=== PATIENT | male | born 1975 | race Caucasian/White ===

== ENCOUNTER 2020-03-02 18:20 | Emergency (ER) | payer BC ==
--- NOTE | 2020-03-02 20:07 | EDM.PDOC ---
ED HPI GENERAL MEDICAL PROBLEM - General Chief Complaint: Genitourinary Problem Stated Complaint: BLOOD IN URINE Time Seen by Provider: 03/02/20 19:45 Source of Information: Reports: Patient History Limitations: Reports: No Limitations - History of Present Illness INITIAL COMMENTS - FREE TEXT/NARRATIVE: The patient presents with dysuria. This started last night. He said he felt the urge to have a BM and had a few. Then this morning he had pain with urination and hematuria is evening. He has never had this before. His is sexually active with his only. He has no discharge. He said he may have had some lower abdominal discomfort a few days ago. He has no fever, chills, cough, congestion, runny nose, chest pain or shortness of breath. Onset: Gradual Duration: Day(s): Quality: Reports: Burning Severity: Moderate Improves with: Reports: None Worsens with: Reports: None Associated Symptoms: Denies: Chest Pain, Cough, Fever/Chills, Headaches, Nausea/Vomiting, Shortness of Breath - Related Data Allergies Allergy/AdvReac Type Severity Reaction Status Date / Time Penicillins Allergy Rash Verified 03/02/20 18:39 pollen extracts Allergy Other Verified 03/02/20 18:39 Home Meds: Home Meds Acetaminophen [Tylenol Arthritis] 2 tab PO DAILY 03/02/20 [History] Aspirin 81 mg PO DAILY 03/02/20 [History] Fexofenadine HCl [Kyara Allergy] 60 mg PO DAILY 03/02/20 [History] Valsartan/Hydrochlorothiazide [Valsartan-Hctz 160-12.5 mg Tab] 1 tab PO DAILY 03/02/20 [History] cephALEXin [Keflex] 500 mg PO BID #10 cap 03/02/20 [Rx] ED ROS GENERAL - Review of Systems Review Of Systems: See Below Constitutional: Reports: No Symptoms HEENT: Reports: No Symptoms Respiratory: Reports: No Symptoms Cardiovascular: Reports: No Symptoms Endocrine: Reports: No Symptoms, Polyuria : Reports: Dysuria, Hematuria Musculoskeletal: Reports: No Symptoms Skin: Reports: No Symptoms ED EXAM, GI/ABD - Physical Exam Exam: See Below Exam Limited By: No Limitations General Appearance: Alert, No Apparent Distress Ears: Normal External Exam Nose: Normal Inspection Head: Atraumatic, Normocephalic Neck: Normal Inspection Respiratory/Chest: No Respiratory Distress, Lungs Clear, Normal Breath Sounds Cardiovascular: Regular Rate, Rhythm, No Edema, No Murmur GI/Abdominal Exam: Soft, Non-Tender, No Organomegaly, No Mass Back Exam: Normal Inspection Extremities: Normal Inspection Course - Vital Signs Last Recorded V/S: Last Vital Signs Temp 99.4 F 03/02/20 18:34 Pulse 86 03/02/20 18:34 Resp 16 03/02/20 18:34 BP 147/95 H 03/02/20 18:34 Pulse Ox 98 03/02/20 18:34 - Orders/Labs/Meds Orders: Active Orders 24 hr Category Date Time Status CULTURE URINE [RM] Stat Lab 03/02/20 19:39 Received Labs: Laboratory Tests 03/02/20 Range/Units 19:39 Urine Color Light yellow (Yellow) Urine Appearance Turbid H (Clear) Urine pH 7.0 (5.0-8.0) Ur Specific [place] 1.020 (1.005-1.030) Urine Protein 2+ H (Negative) Urine Glucose (UA) Negative (Negative) Urine Ketones Negative (Negative) Urine Occult Blood 3+ H (Negative) Urine Nitrite Negative (Negative) Urine Bilirubin Negative (Negative) Urine Urobilinogen 1.0 (0.2-1.0) Ur Leukocyte Esterase 2+ H (Negative) Urine RBC 50-75 H (0-5) /hpf Urine WBC 50-75 H (0-5) /hpf Ur Epithelial Cells Not seen (0-5) /hpf Urine Bacteria Rare (FEW) /hpf Urine Mucus Not seen (FEW) /hpf - Re-Assessments/Exams Free Text/Narrative Re-Assessment/Exam: 03/02/20 20:04 His UA shows a UTI. I will get him on keflex. Departure - Departure Time of Disposition: 20:05 Disposition: Home, Self-Care 01 Condition: Good Clinical Impression: UTI, Urinary tract infectious disease - Discharge Information *PRESCRIPTION DRUG MONITORING PROGRAM REVIEWED*: Not Applicable *COPY OF PRESCRIPTION DRUG MONITORING REPORT IN PATIENT YANNICK: Not Applicable Prescriptions: cephALEXin [Keflex] 500 mg PO BID #10 cap Referrals: Abhay Youssef MD [Primary Care Provider] - Additional Instructions: Take the keflex 2 times per day for 5 days. Drink plenty of fluids. Take motrin or tylenol for pain. Please return if you are worse. Sepsis Event Note (ED) - Evaluation Sepsis Screening Result: No Definite Risk - Focused Exam Vital Signs: Vital Signs Temp Pulse Resp BP Pulse Ox 03/02/20 18:34 99.4 F 86 16 147/95 H 98 - My Orders Last 24 Hours: My Active Orders 03/02/20 19:39 CULTURE URINE [RM] Stat - Assessment/Plan Last 24 Hours: My Active Orders 03/02/20 19:39 CULTURE URINE [RM] Stat
== END 2020-03-02 20:23 | disposition home or self-care (01) ==
LOC: JD.ED 18:20
DX: N39.0 Urinary tract infection, site not specified (principal); Z88.0 Allergy status to penicillin; Z91.048 Other nonmedicinal substance allergy status; Z79.82 Long term (current) use of aspirin; Z79.899 Other long term (current) drug therapy
CPT/HCPCS: 81001; 87086; 87088; 87186; 99283

== ENCOUNTER 2020-03-09 22:53 | Emergency (ER) | payer BC ==
--- NOTE | 2020-03-09 23:35 | EDM.PDOC ---
ED HPI GENERAL MEDICAL PROBLEM - General Chief Complaint: Genitourinary Problem Stated Complaint: SWOLLEN TESTICLES/CHILLS Time Seen by Provider: 03/09/20 23:03 Source of Information: Reports: Patient History Limitations: Reports: No Limitations - History of Present Illness INITIAL COMMENTS - FREE TEXT/NARRATIVE: Mr. Jones is a very pleasant 44-year-old gentleman who, medical records indicate, was seen in this ED 1 week ago today, 03/02/2020 with a complaint at that time of urinary urgency that developed the night prior, 03/01/2020, with dysuria developing that morning, and gross hematuria that evening. His exam was unremarkable. A urinalysis demonstrated both hematuria and pyuria, although no significant bacteriuria. He was diagnosed with a UTI and prescribed cephalexin 500 mg po BID x 5 days, which he took as prescribed, finishing this past morning, 03/07/2020. A urine culture from 03/02/2020 grew E. coli, multiply susceptible. The patient states that he had a fever on 03/04/2020, but none since. He developed swelling and tenderness to his left teste on Wednesday evening, 03/05/2020. He did not have any dysuria or hematuria. He applied ice to the teste, which helped. He felt fine the following morning, and went to work, however, that evening he again had swelling and tenderness to his left teste. He again iced it, again with improvement in his symptoms. This continued through the week. He states that he saw his PCP yesterday, 03/08/2020. The patient states that no tests were performed, but that an ultrasound was scheduled for this coming 03/12/2020. He believes that his PCP intended to prescribe an antibiotic, but did not. The patient now presents to the ED with continued left test pain and swelling. Still no dysuria or gross hematuria. No prior similar symptoms. Here in the ED, the patient is found to be febrile at 101.1 degrees. He is hemodynamic stable with an oxygen saturation of 98% on room air. Prior to 03/01/2020, the patient denies having a recent fever, chills, sore throat, ear pain, nasal or sinus congestion, cough, dyspnea, chest pain, palpitations, nausea, vomiting, constipation, diarrhea, abdominal pain, urinary symptoms, recent weight gain or weight loss, recent bloody bowel movements or black bowel movements, recent joint aches, headaches, or rashes. The patient's PCP is Dr. Abhay Youssef. Left Pain Score (Numeric/FACES): 9 - Related Data Allergies Allergy/AdvReac Type Severity Reaction Status Date / Time Penicillins Allergy Rash Verified 03/02/20 18:39 pollen extracts Allergy Other Verified 03/02/20 18:39 Home Meds: Home Meds Acetaminophen [Tylenol Arthritis] 2 tab PO DAILY 03/02/20 [History] Aspirin 81 mg PO DAILY 03/02/20 [History] Fexofenadine HCl [Kyara Allergy] 60 mg PO DAILY 03/02/20 [History] Valsartan/Hydrochlorothiazide [Valsartan-Hctz 160-12.5 mg Tab] 1 tab PO DAILY 03/02/20 [History] Levofloxacin [Levaquin] 1 tab PO QAM #9 tablet 03/10/20 [Rx] Past Medical History HEENT History: Reports: Allergic Rhinitis Cardiovascular History: Reports: Hypertension Respiratory History: Reports: Sleep Apnea (not yet treated) Gastrointestinal History: Reports: Other (See Below) (Rectal polyp) Musculoskeletal History: Reports: Osteoarthritis (knees) Endocrine/Metabolic History: Reports: Obesity/BMI 30+ - Infectious Disease History Infectious Disease History: Reports: Chicken Pox - Past Surgical History HEENT Surgical History: Reports: Oral Surgery (dental extractions) GI Surgical History: Reports: Other (See Below) (Rectal polyp excision) Male Surgical History: Reports: Circumcision Social & Family History - Tobacco Use Tobacco Use Status *Q: Never Tobacco User - Caffeine Use Caffeine Use: Reports: Soda - Alcohol Use Alcohol Use History: No - Recreational Drug Use Recreational Drug Use: No - Living Situation & Occupation Living situation: Reports: , with Spouse, with Family (4 kids) Occupation: Employed (HV[employer]) ED ROS GENERAL - Review of Systems Review Of Systems: Comprehensive ROS is negative, except as noted in HPI. ED EXAM, RENAL/ - Physical Exam Exam: See Below Exam Limited By: No Limitations General Appearance: Alert, WD/WN, No Apparent Distress (Male) Exam: No Hernia, Circumcised, Scrotal Swelling (left), Scrotum Tenderness (L), Testicular Tenderness (L) (particularly to the inferior pole), Other (The left teste rides lower than the right). No: Testicular Tenderness (R) Course - Vital Signs Last Recorded V/S: Last Vital Signs Temp 38.4 C H 03/09/20 23:11 Pulse 92 03/09/20 23:11 Resp 20 03/09/20 23:11 BP 128/74 03/09/20 23:11 Pulse Ox 98 03/09/20 23:11 - Orders/Labs/Meds Orders: Active Orders 24 hr Category Date Time Status Pelvis w Cont [CT] Stat Exams 03/10/20 01:56 Taken Scrotum and Contents [US] Stat Exams 03/09/20 23:27 Taken Sodium Chloride 0.9% [Normal Saline] 1,000 ml Med 03/10/20 02:00 Active IV ASDIRECTED cefTRIAXone [Rocephin] 2 gm Med 03/10/20 03:20 Ordered Sodium Chloride 0.9% [Normal Saline] 100 ml IV ONETIME Medication Orders Sodium Chloride (Normal Saline) 1,000 mls @ 150 mls/hr IV ASDIRECTED ANTHONY Last Admin: 03/10/20 02:51 Dose: 150 mls/hr Documented by: NARESH Ceftriaxone Sodium 2 gm/ (Sodium Chloride) 100 mls @ 200 mls/hr IV ONETIME STA Stop: 03/10/20 03:49 Labs: Laboratory Tests 03/09/20 03/09/20 Range/Units 23:35 23:35 WBC 15.04 H (4.23-9.07) K/mm3 RBC 5.12 (4.63-6.08) M/mm3 Hgb 14.0 (13.7-17.5) gm/dl Hct 42.5 (40.1-51.0) % MCV 83.0 (79.0-92.2) fl MCH 27.3 (25.7-32.2) pg MCHC 32.9 (32.2-35.5) g/dl RDW Std Deviation 42.3 (35.1-43.9) fL Plt Count 254 (163-337) K/mm3 MPV 11.5 (9.4-12.3) fl Neutrophils % (Manual) 89 H (40-60) % Band Neutrophils % 0 (0-10) % Lymphocytes % (Manual) 7 L (20-40) % Atypical Lymphs % 0 % Monocytes % (Manual) 4 (2-10) % Eosinophils % (Manual) 0 L (0.8-7.0) % Basophils % (Manual) 0 L (0.2-1.2) Platelet Estimate Adequate Plt Morphology Comment Normal RBC Morph Comment Normal Sodium 138 (136-145) mEq/L Potassium 3.3 L (3.5-5.1) mEq/L Chloride 99 (98-107) mEq/L Carbon Dioxide 28 (21-32) mEq/L Anion Gap 14.3 (5-15) BUN 16 (7-18) mg/dL Creatinine 1.0 (0.7-1.3) mg/dL Est Cr Clr Drug Dosing 97.33 mL/min Estimated GFR (MDRD) > 60 (>60) mL/min BUN/Creatinine Ratio 16.0 (14-18) Glucose 124 H (74-106) mg/dL Calcium 8.4 L (8.5-10.1) mg/dL Total Bilirubin 0.4 (0.2-1.0) mg/dL AST 23 (15-37) U/L ALT 31 (16-63) U/L Alkaline Phosphatase 97 (46-116) U/L C-Reactive Protein 3.3 H* (<1.0) mg/dL Total Protein 6.8 (6.4-8.2) g/dl Albumin 3.5 (3.4-5.0) g/dl Globulin 3.3 gm/dL Albumin/Globulin Ratio 1.1 (1-2) Meds: Medications Generic Name Dose Route Start Last Admin Trade Name Freq PRN Reason Stop Dose Admin Sodium Chloride 1,000 mls @ 150 mls/hr 03/10/20 02:00 03/10/20 02:51 Normal Saline IV 150 mls/hr ASDIRECTED ANTHONY Administration Ceftriaxone Sodium 2 gm/ 100 mls @ 200 mls/hr 03/10/20 03:20 Sodium Chloride IV 03/10/20 03:49 ONETIME STA Discontinued Medications Generic Name Dose Route Start Last Admin Trade Name Freq PRN Reason Stop Dose Admin Levofloxacin 500 mg 03/10/20 03:20 Levaquin PO 03/10/20 03:21 ONETIME STA - Re-Assessments/Exams Free Text/Narrative Re-Assessment/Exam: 03/09/20 23:28 As above, the patient was seen in this ED 1 week ago today, 03/02/2020, and found to have a UTI. He was treated with a 5-day course of cephalexin, which he completed morning, 03/07/2020. The urine culture from 03/02/2020 grew E. coli, multiply susceptible, however, he had a fever on and off since 03/04/2020, and he developed left testicular pain and swelling on Wednesday evening, 03/05/2020, which has waxed and waned since, improved with applying ice. No new dysuria or hematuria. He has a fever here in the ED, and his left testy is noticeably larger than his right, with tenderness primarily to the inferior pole, consistent with epididymitis. I have ordered a work-up that includes blood work and an ultrasound of the scrotum and contents. The patient declined an offer for pain medication, however, we will get him an ice pack. 03/10/20 00:43 The patient's CBC is remarkable for WBC count modestly elevated at 15.04, but with 0% bandemia. The remainder of his CBC is unremarkable. His CMP is remarkable for potassium slightly depressed at 3.3, and a blood glucose mildly elevated at 124, with the remainder of his CMP being unremarkable. His CRP is mildly elevated at 3.3. 03/10/20 01:53 Ultrasound of the scrotum and contents is read by [facility] as: 1. Abnormal area of mixed hyperechoic and hypoechoic echogenicity with hyperemia along the left inguinal canal extending into the left scrotum adjacent to the left testicle. Small left hydrocele and mild left scrotal wall edema. Findings suggest infectious/inflammatory process. Abscess not excluded. Patient with reported recent history of bladder surgery. Findings may be better assessed with CT pelvis with IV contrast, with the [id number] extended inferiorly to include the entire scrotum. 2. No evidence of testicular torsion or epididymitis-orchitis. I am not sure how the Radiologist told that the patient recently underwent bladder surgery, but that is not true. Nevertheless, I will order a CT of the pelvis with IV contrast, as recommended. 03/10/20 03:07 CT of the pelvis with IV contrast is read by [facility] as: Mild edema with prominent size and enhancement of vasculature along the left inguinal canal, extending into the left scrotum. Small left hydrocele and mild left scrotal wall thickening. Findings most consistent with infectious/inflammatory process but without abscess or subcutaneous emphysema. No hernia. 03/10/20 03:09 I have pushed the ultrasound and CT images to [facility]. 03/10/20 03:19 Case discussed with Kavon at [facility] at 03:10. Case then discussed with Dr. Alfred, Urologist traffic control signaler at [facility], at 03:16. He feels that the patient is suffering from left epididymo-orchitis, probably due to an incompletely treated UTI. He wanted me to ascertain that the patient is able to urinate adequately. The patient should then be given 2 g of IV Rocephin, then discharged home with a prescription for Levaquin 500 mg daily for 10 days. The patient should then follow-up with him in the clinic in the next for 5 days. I have ordered IV Rocephin 2 g and oral Levaquin 500 mg. 03/10/20 03:30 Test results and my conversation with Dr. Alfred discussed with the patient. He confirmed that he is not having any difficulty urinating. He is agreeable with the plan. He will take tomorrow off work, but does not require a note. He is still declining offers for pain medication. Departure - Departure Time of Disposition: 03:31 Disposition: Home, Self-Care 01 Condition: Good Clinical Impression: Epididymo-orchitis - Discharge Information *PRESCRIPTION DRUG MONITORING PROGRAM REVIEWED*: Not Applicable *COPY OF PRESCRIPTION DRUG MONITORING REPORT IN PATIENT YANNICK: Not Applicable Referrals: Abhay Youssef MD [Primary Care Provider] - Cornel Alfred MD [Ordering Only Provider] - Forms: ED Department Discharge Additional Instructions: You were seen in the emergency room for left testicular pain and swelling. You were found to have a fever in the ER. Work-up in the ER included blood work, an ultrasound of your left testicle, and a CT of your pelvis with IV contrast. Your test results were discussed with the Urologist Dr. Cornel Alfred. He feels that you have left epididymo-orchitis, an infection of your left testicle and epididymis, likely due to an incompletely treated urinary tract infection last week. You were treated with 2 g of IV ceftriaxone (Rocephin) and started on oral levofloxacin (Levaquin) in the ER. A prescription for levofloxacin has been sent to the [facility], located just south and across the [address] from [facility]. Take 1 tablet of levofloxacin every morning, starting tomorrow morning, 03/11/2020, as prescribed. Finish the entire prescription unless told otherwise by Dr. Alfred. You may continue to take [id number] ibuprofen and use ice packs as needed for discomfort. Stay adequately hydrated. It does not really matter what type of fluid you drink. Contact the office of Dr. Alfred on Wednesday, to make an appointment to be seen either , 03/14/2020 or 03/15/2020, in [place]. Make sure that the dental receptionist understands that you are following up from the ER, and that Dr. Alfred wants to see you on one of those days. Do not forget that [place] is 1 hour ahead. If any other problems, please do not hesitate to return to the ER. Sepsis Event Note (ED) - Evaluation Sepsis Screening Result: Possible Sepsis Risk - Focused Exam Vital Signs: Vital Signs Temp Pulse Resp BP Pulse Ox 03/09/20 23:11 38.4 C H 92 20 128/74 98 - My Orders Last 24 Hours: My Active Orders 03/09/20 23:27 Scrotum and Contents [US] Stat 03/10/20 01:56 Pelvis w Cont [CT] Stat 03/10/20 02:00 Sodium Chloride 0.9% [Normal Saline] 1,000 ml IV ASDIRECTED 03/10/20 03:20 cefTRIAXone [Rocephin] 2 gm Sodium Chloride 0.9% [Normal Saline] 100 ml IV ONETIME - Assessment/Plan Last 24 Hours: My Active Orders 03/09/20 23:27 Scrotum and Contents [US] Stat 03/10/20 01:56 Pelvis w Cont [CT] Stat 03/10/20 02:00 Sodium Chloride 0.9% [Normal Saline] 1,000 ml IV ASDIRECTED 03/10/20 03:20 cefTRIAXone [Rocephin] 2 gm Sodium Chloride 0.9% [Normal Saline] 100 ml IV ONETIME
[2020-03-10] MEDS ORDERED: Sodium Chloride 0.9% 1,000 ML IV SCH (02:00)
[2020-03-10] MEDS ORDERED: Levofloxacin 500 MG Tab PO STA (03:20)
[2020-03-10] MEDS ORDERED: cefTRIAXone 2 GM in Sodium Chloride 0.9% 100 ML IV STA (03:20)
== END 2020-03-10 04:16 | disposition home or self-care (01) ==
LOC: JD.ED 22:53
DX: N45.3 Epididymo-orchitis (principal); I10 Essential (primary) hypertension; M19.90 Unspecified osteoarthritis, unspecified site; E66.9 Obesity, unspecified; Z68.39 Body mass index [BMI] 39.0-39.9, adult; Z88.0 Allergy status to penicillin; Z91.048 Other nonmedicinal substance allergy status; Z79.82 Long term (current) use of aspirin; Z79.899 Other long term (current) drug therapy
CPT/HCPCS: 36415; 72193; 76870; 80053; 85007; 85027; 86140; 93975; 96365; 99284; A9270; J0696; J7030; J7050; 99283